=== PATIENT | male | born 1940 | race Caucasian/White ===

== ENCOUNTER → 2018-06-25 | Day surgery (SDC) | payer MEDICARE ==
[2018-06-16 11:23] LABS: BASOPHILS % 0.3 % (0.0-1.0); EOSINOPHILS # (AUTO) 0.4 (0.0-0.4); EOSINOPHILS % 3.4 % (0.0-6.0); HEMATOCRIT 34.9 % (38.2-49.6); HEMOGLOBIN 11.1 g/dL (14.0-18.0); LYMPHOCYTES # (AUTO) 5.3 (1.0-3.2); LYMPHOCYTES % 46.5 % (18.0-39.1); MEAN CORPUSCULAR HEMOGLOBIN 32.7 pg (28-32); MEAN CORPUSCULAR HGB CONC 31.8 g/dL (31-35); MEAN CORPUSCULAR VOLUME 102.9 fL (81-99); MONOCYTES % 8.4 % (4.4-11.3); NEUTROPHILS # (AUTO) 4.6 (2.1-6.9); NEUTROPHILS % 41.1 % (38.7-80.0); PLATELET COUNT 135 x10e3/uL (140-360); RED BLOOD COUNT 3.39 x10e6/uL (4.3-5.7); RED CELL DISTRIBUTION WIDTH 15.6 % (11.7-14.4)
[2018-06-16 13:58] LABS: EOSINOPHILS % (MANUAL) 3 % (0-7); LYMPHOCYTES % (MANUAL) 41 % (19-48); MONOCYTES % (MANUAL) 7 % (3.4-9.0); NEUTROPHILS % (MANUAL) 47 % (40-74)
[2018-06-16 13:59] LABS: ANISOCYTOSIS SLIGHT; PLATELET ESTIMATE SLIGHTLY DECREASED; PLATELET MORPHOLOGY COMMENT NORMAL; RBC MORPHOLOGY COMMENT NORMAL
[~2018-06-25] MED LIST: ADVAIR 250-501 EACH INH; ALLOPURINOL300 MG PO; AMLODIPINE BES2.5 MG PO; CENTRUM SILVER1 EAC3 PO; DIPHENHYDRAMINE50 MG PO; ENTRESTO; GLUCAGON FOR INJ 1 MG VIAL ONE; IRON PO; LIDOCAINE HCL 2% LOCAL INJ 5 ML SDV VIAL INJ ONE; LOSARTAN POTAS100 MG PO; METOPROLOL SUCC50 MG PO; MONTELUKAST SOD10 MG PO; PANTOPRAZOLE SO40 MG PO; POTASSIUM CHLO20 ME1; PROPOFOL IV EMULSION 10 MG/ML 50 ML VIAL ONE; SPIRIVA18 MCG INH; SYMBICORT; VITAMIN D3 1,01 EACH PO; Z.0.ACEBUTOLOL HCL20 PO; Z.0.BYSTOLIC5 MG; Z.0.COUMADIN2.5 MG; Z.0.COUMADIN5 MG; Z.0.COUMADIN6 MG PO; Z.0.LASIX40 MG PO; Z.0.LIPITOR80 MG PO; Z.0.NIACIN500 MG PO; Z.0.PANTOPRAZOLE SO4 PO; Z.0.PROTONIX40 MG; Z.0.WARFARIN SODIUM3 PO; Z.0.ZETIA10 MG PO; [UNRECOGNIZED DRUG - OTHER]
[2018-06-25 07:14] LABS: INR 1.07; PROTHROMBIN TIME 13.1 seconds (11.9-14.5)
[2018-06-25 07:15] LABS: PARTIAL THROMBOPLASTIN TIME 27.3 seconds (23.8-35.5)
--- NOTE | 2018-06-25 09:41 | Operative Report ---
DATE OF PROCEDURE: June 25, 2018 REFERRING PHYSICIAN: Dr. Garrett Goldsmith PROCEDURES PERFORMED 1. Esophagogastroduodenoscopy with biopsies. 2. Colonoscopy with polypectomy and biopsies. 3. Fulguration of vascular ectasia. INDICATIONS FOR EGD: Anemia and history of melena. INDICATIONS FOR COLONOSCOPY: Anemia, guaiac positive stools and history of colon polyps. MEDICATION: Patient was done under MAC. Please see anesthesiologist's note. PROCEDURE: With the patient in the left lateral decubitus position, the flexible fiberoptic Olympus gastroscope was introduced into the esophagus under direct visualization without any difficulty. There was some patchy erythema noted in the distal esophagus. The scope was then advanced with ease into the stomach traversing a moderate size hiatal hernia. Mucosa overlying the antrum revealed some patchy erythema, low-grade edema and biopsies were obtained and sent to stain for H. pylori. There was some mucosal nodules in the distal body. Those were biopsied. Multiple hyperplastic appearing gastric polyps were noted in the body. Some were partially excised with the cold biopsy forceps. The pylorus was of normal contour and shape. It was intubated with ease. The scope was advanced all the way to the 2nd portion of the duodenum. The scope was then withdrawn slowly and moderate size periampullary diverticulum was noted. An additional diverticulum in the proximal 2nd portion was also noted. The duodenal bulb grossly appeared to be within normal limits. The scope was then withdrawn back into the stomach and retroflexed. The mucosa overlying the fundus appeared to be within normal limits. The previously described hiatal hernia was also noted in the retroflexed position. The scope was then straightened out. It was subsequently withdrawn. Patient tolerated the procedure well. IMPRESSION 1. Distal esophagitis, mild. 2. Moderate size hiatal hernia. 3. Gastritis, biopsied. Biopsy sent to stain for Helicobacter pylori. 4. Gastric polyps, hyperplastic appearing. Some partially excised with the cold biopsy forceps. Duodenal diverticulum in proximal 2nd portion. 5. Periampullary diverticulum. PLAN: Follow up histology. Continue Protonix 40 mg 1 p.o. q.a.m. a.c. The patient was then turned around. After adequate lubrication of the anal canal, a flexible fiberoptic Olympus colonoscope was inserted into the rectum with ease and advanced all the way to the cecum. An AVM was noted in the cecum that was not actively bleeding that was sent fulgurated with a size 10-Peruvian gold probe. Three polyps were removed per snare electrocautery from the proximal ascending colon. Two polypectomy sites were prophylactically hemoclipped. The transverse colon appeared to be within normal limits. One polyp in proximal descending was removed per snare electrocautery. Diverticular disease was noted in the sigmoid colon. Several minute AVMs were noted in the rectosigmoid area and those were fulgurated with size 10-Peruvian gold probe. The scope was then retroflexed into the distal rectum and small internal hemorrhoids were noted, none of which was actively bleeding. The scope was then straightened out. The rectosigmoid area, as well as the distal rectal area were decompressed. The scope was subsequently withdrawn. Patient tolerated the procedure well. IMPRESSION 1. 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 2. Ascending colon polyps times 3, snared, 2 polypectomy sites prophylactically hemoclipped. 3. Descending colon polyp, snared. 4. Diverticulosis. 5. 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 6. Internal hemorrhoids, none actively bleeding. PLAN: Follow up histology. Initiate high-fiber and low-fat diet. Initiate high-fiber supplement. No followup colonoscopy is indicated unless the patient rebleeds. Job#: [id number] cc:GARRETT GOLDSMITH MD
== END | disposition home or self-care (01) ==
LOC: OR 05:46
PROVIDERS: ATTEND Internal Medicine Gastroenterology
DX: D64.9 Anemia, unspecified (principal); K63.5 Polyp of colon; K31.7 Polyp of stomach and duodenum; Q27.33 Arteriovenous malformation of digestive system vessel; K29.70 Gastritis, unspecified, without bleeding; K57.10 Diverticulosis of small intestine without perforation or abscess without bleeding; K20.9 Esophagitis, unspecified; K44.9 Diaphragmatic hernia without obstruction or gangrene; K31.89 Other diseases of stomach and duodenum; K57.30 Diverticulosis of large intestine without perforation or abscess without bleeding; K64.8 Other hemorrhoids; J45.909 Unspecified asthma, uncomplicated; G47.33 Obstructive sleep apnea (adult) (pediatric); I25.810 Atherosclerosis of coronary artery bypass graft(s) without angina pectoris; M10.9 Gout, unspecified; E78.6 Lipoprotein deficiency; I48.91 Unspecified atrial fibrillation; I11.0 Hypertensive heart disease with heart failure; I50.9 Heart failure, unspecified; Z01.812 Encounter for preprocedural laboratory examination; Z79.01 Long term (current) use of anticoagulants; Z68.37 Body mass index [BMI] 37.0-37.9, adult; Z85.828 Personal history of other malignant neoplasm of skin; Z95.5 Presence of coronary angioplasty implant and graft; Z95.1 Presence of aortocoronary bypass graft
CPT/HCPCS: 36415 ×2; 43239; 45385; 45388; 85025; 85610; 85730; 88305; 88312; J1610; J2001; 44391; 45378

== ENCOUNTER → 2018-07-01 | Outpatient (CLI) | payer MEDICARE ==
[~2018-07-01] MED LIST changes: -GLUCAGON FOR INJ 1 MG VIAL ONE; -LIDOCAINE HCL 2% LOCAL INJ 5 ML SDV VIAL INJ ONE; -PROPOFOL IV EMULSION 10 MG/ML 50 ML VIAL ONE
--- NOTE | 2018-07-01 11:08 | Diagnostic Imaging Report ---
PROCEDURE:Renal Ultrasound COMPARISON:05/28/2013 INDICATIONS:Chronic Kidney Disease Stage 3 TECHNIQUE: Grayscale transverse and sagittal transabdominal and transvaginal images were obtained of the kidneys and bladder FINDINGS: RIGHT KIDNEY: Length: 11.3 cm Echogenicity: Increased Collecting System: No hydronephrosis Cyst/Mass: 1.8 x 1.3 x 1.5 cm cyst in the interpolar region of the right kidney with questionable internal debris or septation. No internal vascularity. Stones: None LEFT KIDNEY: Length: 11.3 cm Echogenicity: Increased Collecting System: No hydronephrosis Cyst/Mass: A 4.2 x 3.3 x 3.6 cm cyst in the left interpolar region is slightly larger than on the prior examination. Stones: None BLADDER: Unremarkable Prevoid volume: 206 mL Post void volume: 13.5 mL PROSTATE: 3.0 x 3.0 x 4.7 cm (21.7 mL). CONCLUSION: Minimally complex right renal cyst was not seen on the prior examination. Recommend followup ultrasound in one year to ensure stability. No significant post void residual in the bladder. No hydronephrosis, stones, or solid renal masses. Dictated by: George Spence M.D. on 07/01/2018 at 11:14 Electronically approved by: George Spence M.D. on 07/01/2018 at 11:14
--- NOTE | 2018-07-01 11:10 | Diagnostic Imaging Report ---
PROCEDURE:US RETROPERITONEAL ( KIDNEY ). Please see separate dictation for same-day pelvic ultrasound (accession #US [id number]) for full results. Dictated by: George Spence M.D. on 07/01/2018 at 11:16 Electronically approved by: George Spence M.D. on 07/01/2018 at 11:16
== END ==
LOC: US 08:48
PROVIDERS: ATTEND Internal Medicine Nephrology
DX: I12.9 Hypertensive chronic kidney disease with stage 1 through stage 4 chronic kidney disease, or unspecified chronic kidney disease (principal)
CPT/HCPCS: 76770; 76857

== ENCOUNTER → 2019-07-02 | Outpatient (CLI) | payer MEDICARE ==
--- NOTE | 2019-07-02 12:16 | Diagnostic Imaging Report ---
CT of the abdomen and pelvis, without contrast, 07/02/2019. History: Right-sided abdominal pain for one month. Comparison: 09/10/2018. Technique: Multidetector CT scanning of the abdomen and pelvis was performed from the level of the lung bases to the inferior pubic rami without intravenous or oral contrast. Coronal and sagittal multiplanar reformations were obtained. RADIATION DOSE: Total DLP: 726 mGy*cm Dose modulation, iterative reconstruction, and/or weight based adjustment of the mA/kV was utilized to reduce the radiation dose to as low as reasonably achievable. Discussion: Examination is limited without contrast. Lung bases: Calcified granulomata are present bilaterally. There is bibasilar atelectasis. Abdomen: Small stones are present within the gallbladder. Simple cysts are present within both kidneys, the largest on the left measuring 4.4 cm. There is no evidence of renal calculus. The liver, biliary tree, spleen, pancreas, and adrenal glands are unremarkable. The abdominal aorta is within normal limits. There is no bowel dilatation. The appendix is visualized and is normal. Multiple diverticuli are present within the sigmoid colon without evidence of adjacent inflammation. There is no evidence of free fluid. Mildly enlarged portacaval and left para-aortic lymph nodes are present measuring up to 1.2 cm in diameter. A small fat-containing umbilical hernia is present. Pelvis: The bladder, prostate, and seminal vesicles are unremarkable. Bilateral fat-containing inguinal hernias are present. Calcified phlebolith are present bilaterally. There is no evidence of free fluid or adenopathy. Bones and soft tissues: Degenerative changes are present throughout the lumbar spine without evidence of lytic or sclerotic lesion. IMPRESSION: 1. Cholelithiasis. 2. Bilateral renal cysts. 3. Colonic diverticulosis without evidence of diverticulitis. 4. Mildly prominent portacaval and retroperitoneal nodes, likely reactive. 5. Fat-containing umbilical and inguinal hernias.. Signed by: Alden Rodríguez on 07/02/2019 12:13 PM
== END ==
LOC: CT 10:21
PROVIDERS: ATTEND Internal Medicine Nephrology
DX: N18.3 Chronic kidney disease, stage 3 (moderate) (principal); R31.9 Hematuria, unspecified
CPT/HCPCS: 74176

== ENCOUNTER 2019-09-12 08:33 | Emergency (ER) | payer MEDICARE ==
[~2019-09-12] VITALS: Ht 172.7 cm; Wt 96.2 kg
[2019-09-12 09:16] LABS: INR 2.47; PROTHROMBIN TIME 27.5 seconds (11.9-14.5)
[2019-09-12 09:23] LABS: CREATINE KINASE 23 IU/L (30-200)
[2019-09-12] MEDS ORDERED: SODIUM CHLORIDE 0.9% 1000ML 1,000 ML ONE ×2 (09:27→09:59)
[2019-09-12] MEDS ORDERED: PANTOPRAZOLE 40 MG 10ML VIAL IV ONE (09:30)
[2019-09-12] MEDS ORDERED: SODIUM CHLORIDE 0.9% 250ML 250 ML ONE (09:32)
[2019-09-12 09:50] LABS: ALBUMIN 2.9 g/dL (3.5-5.0); ALBUMIN/GLOBULIN RATIO 1.4 (0.8-2.0); ANION GAP 10.9 mmol/L (8-16); CREATININE, SERUM 1.86 mg/dL (0.72-1.25); POTASSIUM 3.9 mmol/L (3.5-5.1)
[2019-09-12 09:52] LABS: BASOPHILS % 0.2 % (0.0-1.0); EOSINOPHILS # (AUTO) 0.3 (0.0-0.4); EOSINOPHILS % 1.6 % (0.0-6.0); LYMPHOCYTES # (AUTO) 5.9 (1.0-3.2); LYMPHOCYTES % 34.9 % (18.0-39.1); MEAN CORPUSCULAR HEMOGLOBIN 34.6 pg (28-32); MEAN CORPUSCULAR HGB CONC 31.7 g/dL (31-35); MEAN CORPUSCULAR VOLUME 109.2 fL (81-99); MONOCYTES # (AUTO) 1.3 (0.2-0.8); MONOCYTES % 7.8 % (4.4-11.3); NEUTROPHILS # (AUTO) 8.8 (2.1-6.9); NEUTROPHILS % 51.9 % (38.7-80.0); PLATELET COUNT 93 x10e3/uL (140-360); RED BLOOD COUNT 1.53 x10e6/uL (4.3-5.7); RED CELL DISTRIBUTION WIDTH 18.7 % (11.7-14.4)
[2019-09-12 09:53] LABS: HEMATOCRIT 16.7 % (38.2-49.6); HEMOGLOBIN 5.3 g/dL (14.0-18.0)
--- NOTE | 2019-09-12 10:07 | NUR ---
2nd unit of blood started
[2019-09-12] MEDS ORDERED: SODIUM CHLORIDE 0.9% 250ML 250 ML IV ONE ×2 (10:30→11:15)
--- NOTE | 2019-09-12 10:44 | NUR ---
3rd unit of blood started
[2019-09-12 11:43] LABS: HEMATOCRIT 22.9 % (38.2-49.6); HEMOGLOBIN 7.5 g/dL (14.0-18.0)
--- NOTE | 2019-09-12 11:54 | NUR ---
4th unit of blood started
[2019-09-12 12:15] LABS: HYPOCHROMASIA MODERATE; PLATELET ESTIMATE MODERATELY DECREASED; PLATELET MORPHOLOGY COMMENT FEW LARGE; RBC MORPHOLOGY COMMENT ABNORMAL
--- NOTE | 2019-09-12 12:43 | NUR ---
report given to denis kay at [facility] going to room 7 [place] [id number]
--- NOTE | 2019-09-12 12:47 | NUR ---
[facility] called for transport 30 min eta given
[2019-09-12 13:28] VITALS: BP 103/49
[2019-09-12] MEDS ORDERED: PANTOPRAZOL 40MG/SOD CHL 0.9% 50 ML IV SCH (14:30)
== END 2019-09-12 13:32 | disposition other institution (70) ==
LOC: ER 08:33
DX: R53.1 Weakness (principal); K92.1 Melena; R57.8 Other shock; Z95.1 Presence of aortocoronary bypass graft; Z95.810 Presence of automatic (implantable) cardiac defibrillator; Z95.2 Presence of prosthetic heart valve; Z79.01 Long term (current) use of anticoagulants
CPT/HCPCS: 36415; 80053; 82550; 82553; 83605; 84484; 85014; 85018; 85025; 85610; 86850; 86900; 86920; 93005; 99284; C9113; J7030; J7050; P9016

== ENCOUNTER → 2020-02-25 | Day surgery (SDC) | payer MEDICARE ==
[2020-02-21 15:19] LABS: BASOPHILS % 0.3 % (0.0-1.0); EOSINOPHILS # (AUTO) 0.2 (0.0-0.4); EOSINOPHILS % 2.2 % (0.0-6.0); HEMATOCRIT 33.9 % (38.2-49.6); HEMOGLOBIN 11.3 g/dL (14.0-18.0); LYMPHOCYTES # (AUTO) 4.2 (1.0-3.2); LYMPHOCYTES % 38.9 % (18.0-39.1); MEAN CORPUSCULAR HEMOGLOBIN 32.7 pg (28-32); MEAN CORPUSCULAR HGB CONC 33.3 g/dL (31-35); MONOCYTES # (AUTO) 1.4 (0.2-0.8); MONOCYTES % 12.6 % (4.4-11.3); NEUTROPHILS # (AUTO) 4.9 (2.1-6.9); NEUTROPHILS % 45.6 % (38.7-80.0); PLATELET COUNT 83 x10e3/uL (140-360); RED BLOOD COUNT 3.46 x10e6/uL (4.3-5.7)
[2020-02-21 16:25] LABS: EOSINOPHILS % (MANUAL) 3 % (0-7); LYMPHOCYTES % (MANUAL) 50 % (19-48); MONOCYTES % (MANUAL) 9 % (3.4-9.0); NEUTROPHILS % (MANUAL) 35 % (40-74); PLATELET ESTIMATE SLIGHTLY DECREASED; PLATELET MORPHOLOGY COMMENT NORMAL; RBC MORPHOLOGY COMMENT NORMAL
[~2020-02-25] MED LIST changes: +ENTRESTO 97 MG1 EACH PO; +EPHEDRINE SULFATE INJ 50 MG/ML VIAL ONE; +FENTANYL CITRATE/PF 100MCG/2 ML INJ ONE; +GLUCAGON FOR INJ 1 MG VIAL ONE; +HYOSCYAMINE 0.125 MG TAB ONE; +LEVOTHYROXINE50 MCG PO; +MIDAZOLAM HCL 2 MG/2 ML VIAL ONE; +PROPOFOL IV EMULSION 10 MG/ML 20 ML VIAL ONE; +SYMBICORT 16010.2 GM INH; +VITAMIN C500 MG PO; +VITAMIN D3125 MCG PO; +WARFARIN SODIUM2 MG PO
[2020-02-25 07:06] LABS: INR 1.47; PARTIAL THROMBOPLASTIN TIME 30.6 seconds (23.8-35.5); PROTHROMBIN TIME 18.8 seconds (11.9-14.5)
[2020-02-25 09:50] VITALS: BP 111/55
--- NOTE | 2020-02-25 10:18 | Operative Report ---
DATE OF PROCEDURE: 02/25/2020 SURGEON: Noel Mckeon MD PROCEDURES: EGD with polypectomy and colonoscopy with fulguration of arteriovenous malformations and polypectomy. INDICATIONS FOR EGD: Anemia, history of melena. INDICATIONS FOR COLONOSCOPY: Anemia. MEDICATIONS: The patient was done under MAC, please see anesthesiologist's note. PROCEDURE IN DETAIL: With the patient in the left lateral decubitus position, a flexible fiberoptic Olympus gastroscope was introduced into the esophagus under direct visualization without any difficulty. The esophagus appeared to be within normal limits. The scope was then advanced with ease into the stomach traversing a small hiatal hernia. Mucosa overlying the antrum and the body revealed some patchy erythema. Several hyperplastic-appearing polyps were noted in the body of the stomach, some were partially excised with the cold biopsy forceps. Pylorus was of normal contour and shape, was intubated with ease and the scope was advanced all the way to the second portion of the duodenum. A large diverticulum was noted in the proximal second portion. Duodenal bulb appeared to be within normal limits. The scope was then withdrawn back into the stomach and retroflexed, mucosa overlying the fundus appeared to be within normal limits. The previously described hiatal hernia was also noted in the retroflexed position. The scope was then straightened out, it was subsequently withdrawn, and the patient tolerated the procedure well. IMPRESSION: 1. Normal esophagus. 2. Hiatal hernia. 3. Gastric polyps, body, hyperplastic-appearing, some partially excised with the cold biopsy forceps. 4. Large diverticulum, proximal second portion of the duodenum. PLAN: Follow up histology. Continue Protonix 40 mg 1 p.o. before meals b.i.d. The patient was then turned around and after adequate lubrication of the anal canal, a flexible fiberoptic Olympus colonoscope was inserted into the rectum with ease and advanced all the way to the cecum. Mucosa overlying the cecum, ascending colon, transverse colon, and descending colon appeared to be within normal limits. Diverticular disease was noted in the sigmoid colon. A minute polyp was removed per hot snare polypectomy and polypectomy site was hemoclipped in the sigmoid colon. Several minute? arteriovenous malformations were noted in the sigmoid colon and that were fulgurated with a size 10-[place]oran scope probe. The rectum appeared to be within normal limits. The scope was then retroflexed into the distal rectum and moderate-sized internal hemorrhoids were noted, none of which was actively bleeding. The scope was then straightened out, it was subsequently withdrawn, and the patient tolerated the procedure well. IMPRESSION: 1. Diverticulosis. 2. Sigmoid colon polyp, hot snared, site hemoclipped x1. 3. ? Arteriovenous malformations, sigmoid colon, fulgurated with size 10-[place] Gold Probe. 4. Internal hemorrhoids, none actively bleeding. PLAN: Follow up histology. Follow H and H. The patient might benefit from a followup colonoscopy in 3 to 5 years. Noel Mckeon MD [facility] [place][id number] cc: Shabbir Senior MD
== END | disposition home or self-care (01) ==
LOC: OR 06:07
PROVIDERS: ATTEND Internal Medicine Gastroenterology
DX: D64.9 Anemia, unspecified (principal); D12.5 Benign neoplasm of sigmoid colon; K31.7 Polyp of stomach and duodenum; K44.9 Diaphragmatic hernia without obstruction or gangrene; K57.10 Diverticulosis of small intestine without perforation or abscess without bleeding; K57.30 Diverticulosis of large intestine without perforation or abscess without bleeding; K64.8 Other hemorrhoids; G47.33 Obstructive sleep apnea (adult) (pediatric); J45.909 Unspecified asthma, uncomplicated; I13.2 Hypertensive heart and chronic kidney disease with heart failure and with stage 5 chronic kidney disease, or end stage renal disease; N18.5 Chronic kidney disease, stage 5; I50.9 Heart failure, unspecified; I25.10 Atherosclerotic heart disease of native coronary artery without angina pectoris; I48.91 Unspecified atrial fibrillation; E78.5 Hyperlipidemia, unspecified; E03.9 Hypothyroidism, unspecified; I34.1 Nonrheumatic mitral (valve) prolapse; Z79.01 Long term (current) use of anticoagulants; Z95.810 Presence of automatic (implantable) cardiac defibrillator
CPT/HCPCS: 36415 ×2; 43239; 45385; 45388; 85025; 85610; 85730; 88305; 88312; J1610; J2250; J2704; J3010

== ENCOUNTER 2023-02-25 05:47 | Observation (INO) | payer MEDICARE ==
[2023-02-24 09:17] LABS: BASOPHILS % 0.2 % (0.0-1.0); EOSINOPHILS # (AUTO) 0.3 (0.0-0.4); LYMPHOCYTES # (AUTO) 4.5 (1.0-3.2); LYMPHOCYTES % 47.7 % (18.0-39.1); MEAN CORPUSCULAR HEMOGLOBIN 32.7 pg (28-32); MEAN CORPUSCULAR HGB CONC 31.7 g/dL (31-35); MONOCYTES # (AUTO) 0.7 (0.2-0.8); MONOCYTES % 7.3 % (4.4-11.3); NEUTROPHILS # (AUTO) 3.9 (2.1-6.9); NEUTROPHILS % 41.6 % (38.7-80.0); PLATELET COUNT 86 x10e3/uL (140-360); RED BLOOD COUNT 3.98 x10e6/uL (4.3-5.7); RED CELL DISTRIBUTION WIDTH 15.4 % (11.7-14.4)
[2023-02-24 09:55] LABS: ANION GAP 16.1 mmol/L (8-16); BLOOD UREA NITROGEN 24 mg/dL (7-26); BUN/CREATININE RATIO 16 (6-25); CALCIUM 10.2 mg/dL (8.4-10.2); CARBON DIOXIDE 30 mmol/L (22-29); CHLORIDE 104 mmol/L (98-107); CREATININE, SERUM 1.49 mg/dL (0.72-1.25); GLUCOSE 117 mg/dL (74-118); POTASSIUM 4.1 mmol/L (3.5-5.1); SODIUM 146 mmol/L (136-145)
[2023-02-24 14:27] LABS: EOSINOPHILS % (MANUAL) 3 % (0-7); LYMPHOCYTES % (MANUAL) 36 % (19-48); MONOCYTES % (MANUAL) 11 % (3.4-9.0); NEUTROPHILS % (MANUAL) 46 % (40-74); PLATELET ESTIMATE MODERATELY DECREASED; PLATELET MORPHOLOGY COMMENT NORMAL; RBC MORPHOLOGY COMMENT NORMAL
[~2023-02-25] VITALS: Ht 170.2 cm; Wt 91.2 kg
[~2023-02-25 05:47] MED LIST changes: +BUMETANIDE2 MG PO; -EPHEDRINE SULFATE INJ 50 MG/ML VIAL ONE; +FAMOTIDINE40 MG PO; -FENTANYL CITRATE/PF 100MCG/2 ML INJ ONE; -GLUCAGON FOR INJ 1 MG VIAL ONE; -HYOSCYAMINE 0.125 MG TAB ONE; +LOVENOX40 MG/0.4 SC; -MIDAZOLAM HCL 2 MG/2 ML VIAL ONE; +MULTI-VITAMIN1 EACH PO; +MYSOLINE50 MG PO; +ONDANSETRON ODT8 MG PO; -PROPOFOL IV EMULSION 10 MG/ML 20 ML VIAL ONE; +WIXELA 500-501 EACH INH
[2023-02-25] MEDS ORDERED: DEXAMETHASONE SOD PHOS 10 MG/1 ML VIAL ONE (06:16)
[2023-02-25] MEDS ORDERED: CELECOXIB 200 MG CAP ONE (06:16)
[2023-02-25] MEDS ORDERED: LACTATED RINGER'S 1,000 ML ONE (06:17)
[2023-02-25] MEDS ORDERED: GABAPENTIN 300 MG CAP ONE (06:17)
[2023-02-25] MEDS ORDERED: CEFAZOLIN SODIUM 2 GM ONE (06:17)
[2023-02-25] MEDS ORDERED: WARFARIN SODIUM5 MG PO (07:01)
[2023-02-25] MEDS ORDERED: TRANEXAMIC ACID 20 ML ONE (07:20)
[2023-02-25] MEDS ORDERED: SODIUM CHLORIDE 0.9% 500ML 500 ML ONE (07:20)
[2023-02-25] MEDS ORDERED: Vancomycin IV 1,000 MG ONE (07:20)
[2023-02-25 07:25] LABS: INR 1.02; PROTHROMBIN TIME 13.9 seconds (11.9-14.5)
[2023-02-25] MEDS ORDERED: ROPIVACAINE 246.25 MG, EPINEPHRINE HCL 1:1000 1ML 0.5 MG, CLONIDINE HCL 0.08 MG, KETORO... INJ ONE ×5 (08:00)
[2023-02-25] MEDS ORDERED: SODIUM CHLORIDE 0.9% 100 ML ONE (08:27)
[2023-02-25] MEDS ORDERED: ACETAMINOPHEN 1000 MG/100 ML 100 ML IV ONE (09:19)
[2023-02-25] MEDS ORDERED: SUGAMMADEX SODIUM 200 MG/2 ML VIAL IV ONE (09:39)
[2023-02-25] MEDS ORDERED: HYDROCODONE/APAP 5MG-325MG TAB PO PRN (10:00)
[2023-02-25] MEDS ORDERED: SODIUM CHLORIDE 0.9% 1000ML 1,000 ML IV SCH (10:00)
[2023-02-25] MEDS ORDERED: DOCUSATE SODIUM 100 MG CAP PO PRN (10:00)
[2023-02-25] MEDS ORDERED: HYDROCODONE/APAP 7.5MG-325MG 1 EA TAB PO PRN (10:00)
[2023-02-25] MEDS ORDERED: DIPHENHYDRAMINE HCL INJ 50 MG/ML VIAL IV PRN (10:00)
[2023-02-25] MEDS ORDERED: ACETAMINOPHEN 650 MG SUPP PR PRN (10:00)
[2023-02-25] MEDS ORDERED: ZOLPIDEM TARTRATE 5 MG TAB PO PRN (10:00)
[2023-02-25] MEDS ORDERED: ONDANSETRON HCL INJ 2MG/ML 2ML 2 MG/ML VIAL IV PRN (10:00)
[2023-02-25] MEDS: FENTANYL CITRATE/PF 100MCG/2 ML INJ ONE ×4 (10:27→11:27)
[2023-02-25 12:16] VITALS: BP 140/67
[2023-02-25] MEDS ORDERED: DEXAMETHASONE SOD PHOS INJ 4 MG/ML SDV ONE (12:24)
[2023-02-25] MEDS ORDERED: POVIDONE IODINE 0.05% 0.05 % ML PO ONE (12:24)
[2023-02-25] MEDS ORDERED: PROPOFOL IV EMULSION 10 MG/ML 20 ML VIAL ONE (12:24)
[2023-02-25] MEDS ORDERED: ONDANSETRON HCL INJ 2MG/ML 2ML 2 MG/ML VIAL ONE (12:24)
[2023-02-25] MEDS ORDERED: ROCURONIUM BROMIDE 10 MG/ML 5ML VIAL IV ONE (12:24)
[2023-02-25] MEDS ORDERED: LIDOCAINE HCL 2% LOCAL INJ 5 ML SDV VIAL INJ ONE (12:24)
[2023-02-25] MEDS ORDERED: DESFLURANE 240 ML BTL INH ONE (12:24)
[2023-02-25] MEDS ORDERED: BUPIVACAINE 0.25% 30ML SDV ONE (13:11)
[2023-02-25] MEDS ORDERED: FENTANYL CITRATE/PF 100MCG/2 ML INJ ONE (13:39)
[2023-02-25] MEDS ORDERED: ACETAMINOPHEN 1000 MG/100 ML IV PRN (14:00)
[2023-02-25] MEDS ORDERED: CELECOXIB 100 MG CAP PO SCH (17:00)
[2023-02-25] MEDS ORDERED: ENOXAPARIN SOD INJ 40 MG/0.4 ML SYR SC SCH (18:00)
== END 2023-02-25 18:00 | disposition home or self-care (01) ==
LOC: OR 05:47 → PACU V 09:53 → MED/SURG 11:44
PROVIDERS: ADMIT Specialist; ATTEND Specialist
DX: M16.0 Bilateral primary osteoarthritis of hip (principal); Z01.810 Encounter for preprocedural cardiovascular examination; Z01.812 Encounter for preprocedural laboratory examination; J44.9 Chronic obstructive pulmonary disease, unspecified; Z85.72 Personal history of non-Hodgkin lymphomas; I11.0 Hypertensive heart disease with heart failure; I50.22 Chronic systolic (congestive) heart failure; Z85.828 Personal history of other malignant neoplasm of skin
CPT/HCPCS: 0223U; 36415; 71046; 72170; 80048; 85025; 85610; 85730; 86850; 86900; 86920; 93005; 94799; C1713; C1776; G0378; J0171; J0690; J1100; J1885; J2001; J2405; J2795; J3370; J7040; J7050

== ENCOUNTER 2023-03-12 13:36 | Emergency (ER) | payer OTHER ==
[~2023-03-12] VITALS: Ht 170.2 cm; Wt 91.2 kg
[~2023-03-12 13:36] MED LIST changes: +WARFARIN SODIUM5 MG PO
[2023-03-12 13:40] VITALS: O2SAT 97
== END 2023-03-12 16:04 | disposition home or self-care (01) ==
LOC: ER 13:44
DX: M79.605 Pain in left leg (principal); W01.198A Fall on same level from slipping, tripping and stumbling with subsequent striking against other object, initial encounter; Y92.89 Other specified places as the place of occurrence of the external cause; I25.10 Atherosclerotic heart disease of native coronary artery without angina pectoris; I10 Essential (primary) hypertension; Z95.1 Presence of aortocoronary bypass graft; Z95.810 Presence of automatic (implantable) cardiac defibrillator
CPT/HCPCS: 93971; 99284

== ENCOUNTER → 2024-05-07 | Day surgery (SDC) | payer MEDICARE ==
[2024-05-03 09:43] LABS: BASOPHILS % 0.4 % (0.0-1.0); EOSINOPHILS # (AUTO) 0.2 (0.0-0.4); EOSINOPHILS % 2.2 % (0.0-6.0); HEMATOCRIT 39.2 % (38.2-49.6); HEMOGLOBIN 12.6 g/dL (14.0-18.0); LYMPHOCYTES # (AUTO) 3.3 (1.0-3.2); LYMPHOCYTES % 41.4 % (18.0-39.1); MEAN CORPUSCULAR HEMOGLOBIN 34.8 pg (28-32); MEAN CORPUSCULAR HGB CONC 32.1 g/dL (31-35); MEAN CORPUSCULAR VOLUME 108.3 fL (81-99); MONOCYTES # (AUTO) 0.9 (0.2-0.8); MONOCYTES % 10.6 % (4.4-11.3); NEUTROPHILS # (AUTO) 3.6 (2.1-6.9); PLATELET COUNT 85 x10e3/uL (140-360); RED BLOOD COUNT 3.62 x10e6/uL (4.3-5.7); RED CELL DISTRIBUTION WIDTH 15.8 % (11.7-14.4); WHITE BLOOD COUNT 8.04 x10e3/uL (4.8-10.8)
[~2024-05-07] MED LIST changes: +EMPAGLIFLOZIN PO; +ENTRESTO 24 MG1 EACH PO; +FENTANYL CITRATE/PF 100MCG/2 ML INJ ONE; +LACTATED RINGER'S 1,000 ML ONE; +LIDOCAINE HCL 2% LOCAL INJ 5 ML SDV VIAL INJ ONE; +MUCINEX DM ER1 EACH PO; +POTASSIUM CHLO20 ME1 PO; +PROPOFOL IV EMULSION 10 MG/ML 20 ML VIAL ONE; +SACUBITRIL PO; +[UNRECOGNIZED DRUG - OTHER] PO
[2024-05-07 07:37] LABS: INR 1.04; PROTHROMBIN TIME 14.3 seconds (11.9-14.5)
[2024-05-07 07:38] LABS: PARTIAL THROMBOPLASTIN TIME 27.3 seconds (23.8-35.5)
[2024-05-07 08:55] VITALS: TEMP 97.4
[2024-05-07 09:10] VITALS: BP 121/74; PULSE 60; RESP 16; O2SAT 97
== END | disposition home or self-care (01) ==
LOC: OR 06:40
PROVIDERS: ATTEND Internal Medicine Gastroenterology
DX: K29.70 Gastritis, unspecified, without bleeding (principal); K20.90 Esophagitis, unspecified without bleeding; K31.89 Other diseases of stomach and duodenum; K57.10 Diverticulosis of small intestine without perforation or abscess without bleeding; K21.9 Gastro-esophageal reflux disease without esophagitis; K44.9 Diaphragmatic hernia without obstruction or gangrene; G47.33 Obstructive sleep apnea (adult) (pediatric); J45.909 Unspecified asthma, uncomplicated; E03.9 Hypothyroidism, unspecified; E66.9 Obesity, unspecified; I25.810 Atherosclerosis of coronary artery bypass graft(s) without angina pectoris; I11.0 Hypertensive heart disease with heart failure; I50.9 Heart failure, unspecified; E78.5 Hyperlipidemia, unspecified; Z01.810 Encounter for preprocedural cardiovascular examination; Z01.812 Encounter for preprocedural laboratory examination; Z79.01 Long term (current) use of anticoagulants; Z79.899 Other long term (current) drug therapy; Z95.1 Presence of aortocoronary bypass graft; Z95.0 Presence of cardiac pacemaker; Z85.828 Personal history of other malignant neoplasm of skin
CPT/HCPCS: 36415 ×2; 43239; 85025; 85610; 85730; 93005; J2001; J2470; J2704; J3010; J7121